=== PATIENT | male | born 1955 | race Caucasian/White ===

== ENCOUNTER → 2018-03-09 | Outpatient (CLI) | payer OTHER ==
--- NOTE | 2018-03-09 09:55 | KCIC ---
Complete abdominal ultrasound 03/09/2018 8:00 AM Clinical History: Right upper quadrant abdominal pain. Elevated liver enzymes Technique: Ultrasound examination of the abdomen was performed, and multiple static images were submitted for review. Comparison: None available Findings: The the pancreas is poorly visualized. Visualized portions of the pancreas are unremarkable. Partially visualized aorta and IVC are unremarkable. The liver is partially visualized. Visualized portions of the liver. Hyperechoic suggesting hepatic steatosis. The liver is top normal in size measuring 17 cm longitudinally. No evidence of intrahepatic biliary dilatation is seen. Common bile duct measures 4 mm in diameter which is normal. The gallbladder is normal in appearance without wall thickening, stones, or sludge. No pericholecystic fluid is seen. Sonographic Vasquez's sign is negative. Spleen is top normal in size measuring 11.3 cm longitudinally. The bilateral kidneys are normal in appearance without evidence of obstructive uropathy, nephrolithiasis, or focal renal lesion. Right kidney measures 9.8 in length. Left kidney measures 10.4 cm in length. Impression: 1. Probable hepatic steatosis 2. Otherwise unremarkable abdominal ultrasound Electronically signed by: Chirag Montes MD (03/09/2018 9:51 AM) [id number]
== END | disposition home or self-care (01) ==
LOC: KCIC US 08:09
PROVIDERS: ATTEND Nurse Practitioner
DX: R10.11 Right upper quadrant pain (principal); R79.89 Other specified abnormal findings of blood chemistry
CPT/HCPCS: 76700